=== PATIENT | female | born 1985 ===

== ENCOUNTER 2018-09-22 02:05 | Emergency (ER) | payer SELFPAY ==
[2018-09-22 02:14] VITALS: BMI 24.7
[2018-09-22 02:17] VITALS: RESP 18
--- NOTE | 2018-09-22 03:48 | C.PDOC ---
History Of Present Illness 33 year old female presents to the ED c/o left knee pain. Patient reports that while working today she felt her left knee buckle. Patient reports she twisted her left knee and now has pain. Patient did not take any pain medications at home. Patient denies fever, chills, direct trauma, injury, fall, weakness, numbness. Chief Complaint (Nursing): Lower Extremity Problem/Injury History Per: Patient History/Exam Limitations: no limitations Onset/Duration Of Symptoms: Hrs Current Symptoms Are (Timing): Still Present Recent travel outside of the [place]: No Additional History Per: Patient - Knee Description Of Injury: Twisted Past Medical History Reviewed: Historical Data, Nursing Documentation, Vital Signs Vital Signs: Last Vital Signs Temp 97.6 F 09/22/18 02:14 Pulse 90 09/22/18 02:14 Resp 18 09/22/18 02:14 BP 117/74 09/22/18 02:14 Pulse Ox 100 09/22/18 02:14 Primary Care Provider: FAMILY PROVIDER,NO - Medical History PMH: No Chronic Diseases Surgical History: No Surg Hx Family History: States: Unknown Family Hx - Social History Hx Alcohol Use: Yes Hx Substance Use: Yes (marijuana) - Immunization History Hx Tetanus Toxoid Vaccination: No Hx Influenza Vaccination: No Hx Pneumococcal Vaccination: No Review Of Systems Constitutional: Negative for: Fever, Chills Gastrointestinal: Negative for: Nausea, Vomiting Musculoskeletal: Positive for: Leg Pain. Negative for: Foot Pain Skin: Negative for: Rash Neurological: Negative for: Weakness, Numbness, Headache Physical Exam - Physical Exam Appears: Non-toxic, No Acute Distress Skin: Normal Color, Warm, Dry Head: Atraumatic, Normacephalic Eye(s): bilateral: Normal Inspection Neck: Normal ROM, Supple Extremity: Normal ROM, Tenderness (left knee ), Capillary Refill (< 2 seconds), No Deformity, No Swelling, No Other (ecchymosis or erythema) Pulses: Left Dorsalis Pedis: Normal, Right Dorsalis Pedis: Normal Neurological/Psych: Oriented x3, Normal Speech, Normal Cognition, Normal Motor, Normal Sensation Gait: Other (antalgic) ED Course And Treatment O2 Sat by Pulse Oximetry: 100 (ON RA) Pulse Ox Interpretation: Normal - Other Rad Left Knee X-Ray X-Ray: Interpreted by Me, Viewed By Me Interpretation: No fracture or dislocation Progress Note: Plan: - Left Knee X-Ray. - Toradol 30 mg IM. Patient's imaging results were discussed with patient. Patient was placed on a knee brace for support and advised to follow up with PMD. Crutches given with instructions Reassessment Condition: Improved Disposition Counseled Patient/Family Regarding: Diagnosis, Need For Followup, Rx Given - Disposition Referrals: Orthopedic Clinic at [Outside] Kishan Portillo MD [Staff Provider] - Disposition: HOME/ ROUTINE Disposition Time: 03:47 Condition: STABLE Additional Instructions: Please follow up with PMD Knee brace for support Take motrin for pain Apply ICE/ Leg elevation Return to ER if worse Prescriptions: Ibuprofen [Motrin] 600 mg PO Q6H #30 tab Instructions: Knee Sprain (DC) Forms: [employer] (Italian), Work Excuse - Clinical Impression Clinical Impression: Sprain of left knee - 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 - Scribe Statement The provider has reviewed the documentation as recorded by the Scribe Juan Gonzáles All medical record entries made by the Scribe were at my direction and personally dictated by me. I have reviewed the chart and agree that the record accurately reflects my personal performance of the history, physical exam, medical decision making, and the department course for this patient. I have also personally directed, reviewed, and agree with the discharge instructions and disposition.
[2018-09-22 05:08] VITALS: BP 104/65; PULSE 73; TEMP 98.1
--- NOTE | 2018-09-22 09:37 | RAD ---
PROCEDURE: Left Knee Radiographs. Three views. HISTORY: twisted knee COMPARISON: None available. FINDINGS: BONES: No acute displaced fracture. JOINTS: No dislocation. JOINT EFFUSION: Probable small suprapatellar joint effusion. OTHER FINDINGS: None. IMPRESSION: Probable small suprapatellar joint effusion. No acute displaced fracture or dislocation identified. If symptoms persist or if there is continued clinical concern, x-ray follow-up in 7-10 days should be considered.
[2018-09-23 21:45] VITALS: O2SAT 100
== END 2018-09-22 04:25 | disposition home or self-care (01) ==
LOC: C.ER 02:05
DX: S83.92XA Sprain of unspecified site of left knee, initial encounter (principal); X50.1XXA Overexertion from prolonged static or awkward postures, initial encounter
CPT/HCPCS: 73562; 96372; 99285; J1885